=== PATIENT | female | born 1965 | race African-American/Black ===

== ENCOUNTER 2017-12-15 10:39 | Emergency (ER) | payer OTHER ==
[2017-12-15 10:47] VITALS: RESP 16; TEMP 98.4
[2017-12-15] MEDS ORDERED: IPRATROPIUM-ALBUTEROL 3 ML NEB INHALATION STA (11:01)
--- NOTE | 2017-12-15 11:04 | ED ---
Chest Pain HPI - General Chief Complaint: Chest Pain Stated Complaint: Fluttering under brest Time Seen by Provider: 12/15/17 10:53 Source: patient, RN notes reviewed Mode of arrival: ambulatory Limitations: no limitations - History of Present Illness Initial Comments: This is a 52-year-old female history of heart disease also a history of smoking who states she's had left-sided chest pain underneath her breast along the left sternum today with some shortness of breath no fevers chills nausea vomiting sweats or other symptoms. MD Complaint: chest pain - Related Data Home Medications Medication Instructions Recorded Confirmed Potassium Chloride [K-Tab ER] 10 meq PO DAILY 08/13/13 12/15/17 Albuterol Inhaler [Ventolin Hfa 2 puff INHALATION RT-DAILY 12/15/17 12/15/17 Inhaler] Ascorbic Acid [Vitamin C] 500 mg PO DAILY 12/15/17 12/15/17 Furosemide [Lasix] 40 mg PO DAILY 12/15/17 12/15/17 Glimepiride [Amaryl] 2 mg PO DAILY 12/15/17 12/15/17 amLODIPine BESYLATE [Norvasc] 5 mg PO DAILY 12/15/17 12/15/17 metFORMIN HCL 1,000 mg PO BID 12/15/17 12/15/17 Previous Rx's Medication Instructions Recorded Ibuprofen 800 mg PO Q6HR PRN #20 tablet 12/15/17 Allergies Allergy/AdvReac Type Severity Reaction Status Date / Time No Known Allergies Allergy Verified 12/15/17 11:17 Review of Systems ROS Statement: Those systems with pertinent positive or pertinent negative responses have been documented in the HPI. ROS Other: All systems not noted in ROS Statement are negative. EKG Findings - EKG Results: EKG: interpreted by ERMRobert, sinus rhythm (Sinus rhythm rate of 82. Interval 174 QRS duration 92 QT since QTC 380/443 LVH nonspecific T-wave configuration artifact is present.) Past Medical History Past Medical History: Heart Failure, Hypertension History of Any Multi-Drug Resistant Organisms: None Reported Past Surgical History: Section, Orthopedic Surgery Past Psychological History: No Psychological Hx Reported Smoking Status: Current every day smoker Past Alcohol Use History: None Reported Past Drug Use History: None Reported General Exam - General Exam Comments Initial Comments: This is a well-developed well-nourished awake alert oriented 3 female examination was performed with a female nurse, Ashley, denise Limitations: no limitations General appearance: alert, anxious Head exam: Present: atraumatic, normocephalic, normal inspection Eye exam: Present: normal appearance, PERRL, EOMI. Absent: scleral icterus, conjunctival injection, periorbital swelling ENT exam: Present: normal exam, mucous membranes moist Neck exam: Present: normal inspection. Absent: tenderness, meningismus, lymphadenopathy Respiratory exam: Present: chest wall tenderness, decreased breath sounds, other (Tenderness palpation of the left costal sternal margin she also points underneath her left breast minimal discomfort to palpation no rash noted no step -off or crepitation). Absent: respiratory distress, wheezes, rales, rhonchi, stridor Cardiovascular Exam: Present: regular rate, normal rhythm, normal heart sounds. Absent: systolic murmur, diastolic murmur, rubs, gallop, clicks GI/Abdominal exam: Present: soft, normal bowel sounds. Absent: distended, tenderness, guarding, rebound, rigid Extremities exam: Present: normal inspection, full ROM, normal capillary refill. Absent: tenderness, pedal edema, joint swelling, calf tenderness Back exam: Present: normal inspection Neurological exam: Present: alert, oriented X3, CN II-XII intact Psychiatric exam: Present: normal affect, normal mood Skin exam: Present: warm, dry, intact, normal color. Absent: rash Course Vital Signs 12/15/17 12/15/17 12/15/17 10:45 11:29 11:38 Temperature 98.4 F Pulse Rate 89 83 84 Respiratory 16 Rate Blood Pressure 154/90 O2 Sat by Pulse 97 Oximetry 12/15/17 12:04 Temperature Pulse Rate 79 Respiratory 16 Rate Blood Pressure 179/89 O2 Sat by Pulse 99 Oximetry Chest Pain MDM - MDM I did review the imaging and reports no evidence of acute findings. The presentation consistent with musculoskeletal pain. Disposition Clinical Impression: Costalchondritis, Chest wall syndrome Disposition: HOME SELF-CARE Condition: Good Instructions: Costochondritis (ED) Prescriptions: Ibuprofen 800 mg PO Q6HR PRN #20 tablet PRN Reason: Pain Is patient prescribed a controlled substance at d/c from ED?: No Referrals: Ailcia Oneill MD [Primary Care Provider] - 1-2 days
[2017-12-15 11:25] LABS: Basophils % (A) 1 %; Eosinophils # (A) 0.3 k/uL (0-0.7); Eosinophils % (A) 5 %; HCT 44.6 % (34.0-46.0); HGB 15.7 gm/dL (11.4-16.0); Lymphocytes # (A) 2.1 k/uL (1.0-4.8); Lymphocytes % (A) 37 %; MCHC 35.2 g/dL (31.0-37.0); MCV 79.5 fL (80.0-100.0); Mean Platelet Volume 7.1; Monocytes # (A) 0.3 k/uL (0-1.0); Monocytes % (A) 5 %; Neutrophils # (A) 2.9 k/uL (1.3-7.7); Neutrophils % (A) 51 %; Platelet Count 303 k/uL (150-450); RBC 5.62 m/uL (3.80-5.40); RDW 13.6 % (11.5-15.5); WBC 5.8 k/uL (3.8-10.6)
--- NOTE | 2017-12-15 11:32 | XR ---
EXAMINATION TYPE: XR chest 2V DATE OF EXAM: 12/15/2017 COMPARISON: NONE TECHNIQUE: PA and lateral views submitted. HISTORY: Chest pain FINDINGS: The lungs are clear and there is no pneumothorax, pleural effusion, or focal pneumonia. 07/30/2015 h ypertrophic and degenerative change of the spine. IMPRESSION: 1. No acute process.
[2017-12-15 11:39] LABS: ALT 23 U/L (9-52); AST 30 U/L (14-36); Albumin 4.3 g/dL (3.5-5.0); Alkaline Phosphatase 87 U/L (38-126); Amylase 38 U/L (30-110); Anion Gap 11 mmol/L; Blood Urea Nitrogen 12 mg/dL (7-17); Calcium 9.2 mg/dL (8.4-10.2); Carbon Dioxide 27 mmol/L (22-30); Chloride 104 mmol/L (98-107); Glucose 104 mg/dL (74-99); Lipase 37 U/L (23-300); Magnesium 1.9 mg/dL (1.6-2.3); Sodium 142 mmol/L (137-145); Total Protein 7.4 g/dL (6.3-8.2)
[2017-12-15 11:43] LABS: D-Dimer 0.27 mg/L FEU (<0.60); INR 0.9 (<1.2); Partial Thromboplastin Time 27.1 sec (22.0-30.0); Prothrombin Time 9.4 sec (9.0-12.0)
[2017-12-15 11:48] LABS: Creatine Kinase 97 U/L (30-135)
[2017-12-15 12:01] LABS: Creatine Kinase MB 0.8 ng/mL (0.0-2.4); Troponin I <0.012 ng/mL (0.000-0.034)
[2017-12-15 12:07] VITALS: BP 179/89; PULSE 79
[2017-12-15 12:19] LABS: Potassium 4.4 mmol/L (3.5-5.1)
== END 2017-12-15 13:20 | disposition home or self-care (01) ==
LOC: EC 10:39
DX: M94.0 Chondrocostal junction syndrome [Tietze] (principal); I11.0 Hypertensive heart disease with heart failure; I50.9 Heart failure, unspecified; F17.200 Nicotine dependence, unspecified, uncomplicated; Z79.84 Long term (current) use of oral hypoglycemic drugs; Z79.899 Other long term (current) drug therapy
CPT/HCPCS: 36415; 71046; 80053; 82150; 82550; 82553; 83690; 83735; 84484; 85025; 85379; 85610; 85730; 93005; 94640; 99285